=== PATIENT | male | born 1940 | race Caucasian/White ===

== ENCOUNTER 2016-10-30 10:08 | Outpatient (CLI) | payer OTHER ==
[2016-07-22 14:29] VITALS: BP 140/49
== END 2016-10-30 10:10 ==
LOC: LAB 10:08
PROVIDERS: ATTEND Family Medicine
DX: E11.9 Type 2 diabetes mellitus without complications (principal); E03.9 Hypothyroidism, unspecified
CPT/HCPCS: 36415; 83036; 84443

== ENCOUNTER 2017-02-05 09:37 | Outpatient (CLI) | payer OTHER ==
[2016-07-22 14:29] VITALS: BP 140/49
[2017-02-05 09:59] LABS: BASOPHILS % 0.8 (0.0-1.5); EOSINOPHILS % 2.7 % (0.0-6.8); MEAN CORPUSCULAR HEMOGLOBIN 30.6 pg (28.0-34.0); MEAN CORPUSCULAR VOLUME 96.5 fl (80.0-100.0); MONOCYTES % 5.3 % (0.0-11.0); NEUTROPHILS # 6.9 # k/uL (1.4-7.7)
[2017-02-05 10:22] LABS: eGFR (African) > 60; eGFR (Non-African) > 60
[2017-02-05 17:21] LABS: IRON SERUM 77 ug/dL (59-158)
== END 2017-02-05 09:40 ==
LOC: LAB 09:37
PROVIDERS: ATTEND Family Medicine
DX: E11.9 Type 2 diabetes mellitus without complications (principal); G25.81 Restless legs syndrome
CPT/HCPCS: 36415; 80053; 82728; 83036; 83540; 85025

== ENCOUNTER 2017-04-01 12:57 | Emergency (ER) | payer OTHER ==
--- NOTE | 2017-04-01 13:31 | ED Physician Documentation ---
Abdominal Pain - HISTORIAN Historian: patient - HPI Stated Complaint: a shift in abd hernea from low right to mid abd right Chief Complaint: Abdominal Pain Onset: days ago (2 days ago) Context: denies: out of country travel Severity: mild Quality: cramping Associated Symptoms: none, diarrhea (last time Friday, no BM since). denies: fever, chills, nausea, vomiting, coffee ground emesis, bloody emesis, bloody stools, grossly bloody stools Further Comments: yes (Patient has had partial colectomy, since that time had a hernia, one week aog felt like something moved and has noticed since that time that the hernia does not seem to be as big and noticed to have some swelling above the area and to the mid area. Has had some diarrhea two nights ago, no BM since then. No blood in stools noted. No nausea or vomitng noted.No fever or chills noted.) - ROS CONST: no problems GI/: denies: black stools, bloody urine, bloody stools - SOCIAL HX Smoking History: non-smoker Alcohol Use: none Drug Use: none - FAMILY HX Family History: no significant history - PAST HX Past History: GERD Ischemic Bowel Risk Factors: other (CAD) Other History: other (copd, CAD, GERDs, hypothyroidism, Major depressive disorder, BALAJI, RA, DM type 2, history of ulcerative colitis) Surgeries/Procedures: appendectomy, other (partial coloectomy, carotid endrterectomy, Fem-pop bypass, lumbar laminectomy) Home Medications: Ambulatory Orders Medication Instructions Recorded Ferrous Sulfate [Feosol] 325 mg PO BID #60 tablet 01/10/16 PARoxetine HCL [Paxil] 20 mg PO QD 07/22/16 Pioglitazone HCl [Pioglitazone HCl] 45 mg PO QDAY 07/22/16 Tamsulosin HCl [Tamsulosin HCl] 0.04 mg PO DAILY 07/22/16 Aspirin [Adult Low Dose Aspirin EC] 81 mg PO DAILY 04/01/17 Ipratropium/Albuterol Sulfate 3 ml NEB QID 04/01/17 [Duoneb] [place]-3 Fatty Acids/Fish Oil [Fish 1 cap PO DAILY 04/01/[address] 1,000 mg Softgel] Allergies/Adverse Reactions: Allergies Allergy/AdvReac Type Severity Reaction Status Date / Time Penicillins Allergy Verified 04/01/17 13:15 - VITAL SIGNS Vital Signs: Vital Signs Temp Pulse Resp BP Pulse Ox 99.0 F 77 20 167/71 95 04/01/17 12:57 04/01/17 12:57 04/01/17 12:57 04/01/17 12:57 04/01/17 12:57 - REVIEWED ASSESSMENTS Nursing Assessment Reviewed: Yes Vitals Reviewed: Yes ED Results Lab/Radiology - Radiology Radiology Impressions: Patient Study Name: CONNIE HERNANDEZ Date: Apr 01, 2017 1:53:23 PM CDT Modality Type: CR Gender: M Description: CHEST,ABDOMEN : 38 Institution: [facility] Physician: ISIDORO TORRES - IRAJ Obstructive series with chest x-ray Clinical history: Lower abdominal pain and distension. Findings: Examination of the chest in single upright view demonstrates lungs to be free of coalescent infiltrate. The cardiac silhouette is prominent and the aorta is atherosclerotic. Degenerative changes are seen in the thoracic vertebrae. Examination of the abdomen in supine and upright views demonstrates normal appearing bowel gas pattern. There is no obstruction or free air. Degenerative changes are seen in the lumbar vertebrae and hips. There are no unusual intra-abdominal calcifications. Impression: 1. Aortic atherosclerosis and left ventricular prominence. 2. Thoracolumbar spondylosis. 3. No obstruction or free air. - Orders Orders: ED Orders Category Date Time Status ABD SERIES [ABD SERIES PA CHEST] [RAD] Stat Exams 04/01/17 Completed Abdominal Pain Physical Exam - Physical Exam General Appearance: no acute distress, alert NECK: normal inspection, supple RESPIRATORY: no resp distress, chest non-tender, breath sounds normal. No: wheezes, rales, rhonchi CVS: reg rate & rhythm, heart sounds normal, equal pulses, no murmur ABDOMEN: soft, no organomegaly, normal bowel sounds, no abdominal bruit, no distension, non-tender. No: rebound, distended, guarding BACK: normal inspection, no CVA tenderness SKIN: warm/dry, normal color EXTREMITIES: non-tender NEURO: oriented X3, CN's nml as tested, cognition normal Vital Signs: Vital Signs Temp Pulse Resp BP Pulse Ox 99.0 F 77 20 167/71 95 04/01/17 12:57 04/01/17 12:57 04/01/17 12:57 04/01/17 12:57 04/01/17 12:57 Discharge Clincal Impression: Abdominal discomfort Referrals: Dora Mancera MD [Primary Care Provider] - 2 Days Additional Instructions: Try to increase the fiber in your diet. Watch for any nausea or vomiting. Watch for blood in your stools. If you continue to have problems to follow-up with your primary care provider to return to the ED. Home Medications: Ambulatory Orders Ferrous Sulfate [Feosol] 325 mg PO BID #60 tablet 01/10/16 PARoxetine HCL [Paxil] 20 mg PO QD 07/22/16 Pioglitazone HCl [Pioglitazone HCl] 45 mg PO QDAY 07/22/16 Tamsulosin HCl [Tamsulosin HCl] 0.04 mg PO DAILY 07/22/16 Aspirin [Adult Low Dose Aspirin EC] 81 mg PO DAILY 04/01/17 Ipratropium/Albuterol Sulfate [Duoneb] 3 ml NEB QID 04/01/17 [place]-3 Fatty Acids/Fish Oil [Fish Oil Dr 1,000 mg Softgel] 1 cap PO DAILY 04/01 Condition: Stable Disposition: 01 HOME, SELF-CARE Decision to Admit: NO Date of Decison to Admit: 04/01/17 Decision Time: 15:01
--- NOTE | 2017-04-01 14:36 | Diagnostic Imaging Report ---
ISIDORO TORRES [facility] [address] [facility] [id number] Report Submission Date: Apr 01, 2017 2:31:50 PM CDT Patient Study Name: CONNIE HERNANDEZ Date: Apr 01, 2017 1:53:23 PM CDT Modality Type: CR Gender: M Description: CHEST,ABDOMEN : 38 Institution: [facility] Physician: ISIDORO TORRES Obstructive series with chest x-ray Clinical history: Lower abdominal pain and distension. Findings: Examination of the chest in single upright view demonstrates lungs to be free of coalescent infiltrate. The cardiac silhouette is prominent and the aorta is atherosclerotic. Degenerative changes are seen in the thoracic vertebrae. Examination of the abdomen in supine and upright views demonstrates normal appearing bowel gas pattern. There is no obstruction or free air. Degenerative changes are seen in the lumbar vertebrae and hips. There are no unusual intra-abdominal calcifications. Impression: 1. Aortic atherosclerosis and left ventricular prominence. 2. Thoracolumbar spondylosis. 3. No obstruction or free air. Electronically signed on Apr 01, 2017 2:31:50 PM CDT by: Amor CUNNINGHAM
[2017-04-01 15:02] VITALS: BP 163/62
== END 2017-04-01 15:00 | disposition home or self-care (01) ==
LOC: ED 12:57
DX: R10.9 Unspecified abdominal pain (principal)
CPT/HCPCS: 74022; 99283

== ENCOUNTER 2017-05-26 08:56 | Outpatient (CLI) | payer OTHER ==
[2017-05-26 09:51] LABS: eGFR (African) 54; eGFR (Non-African) 45
== END 2017-05-26 08:57 ==
LOC: LAB 08:56
PROVIDERS: ATTEND Family Medicine
DX: E78.2 Mixed hyperlipidemia (principal); E11.9 Type 2 diabetes mellitus without complications; E03.9 Hypothyroidism, unspecified
CPT/HCPCS: 36415; 80053; 80061; 83036; 84443

== ENCOUNTER 2017-07-14 15:39 | Outpatient (CLI) | payer OTHER ==
[2017-07-14 15:57] LABS: BASOPHILS % 0.5 (0.0-1.5); EOSINOPHILS % 2.4 % (0.0-6.8); MEAN CORPUSCULAR HEMOGLOBIN 28.9 pg (28.0-34.0); MEAN CORPUSCULAR VOLUME 91.8 fl (80.0-100.0); MONOCYTES % 5.4 % (0.0-11.0); NEUTROPHILS # 7.5 # k/uL (1.4-7.7)
[2017-07-14 16:20] LABS: eGFR (African) 44; eGFR (Non-African) 37
== END 2017-07-14 16:45 ==
LOC: LAB 15:39
PROVIDERS: ATTEND Internal Medicine Gastroenterology
DX: K74.60 Unspecified cirrhosis of liver (principal); R14.0 Abdominal distension (gaseous); R53.83 Other fatigue; R19.7 Diarrhea, unspecified
CPT/HCPCS: 36415; 80053; 85025

== ENCOUNTER 2017-08-12 09:33 | Outpatient (CLI) | payer OTHER ==
[2017-08-12 10:35] LABS: eGFR (African) 54; eGFR (Non-African) 45
== END 2017-08-12 10:37 ==
LOC: LAB 09:33
PROVIDERS: ATTEND Internal Medicine Gastroenterology
DX: E11.9 Type 2 diabetes mellitus without complications (principal); K74.69 Other cirrhosis of liver
CPT/HCPCS: 36415; 80053; 82140; 83036

== ENCOUNTER 2017-09-12 08:20 | Emergency (ER) | payer OTHER ==
[2017-09-12] MEDS ORDERED: FUROSEMIDE 40 MG/4 ML VIAL ONE (08:38)
[2017-09-12] MEDS ORDERED: BUDESONIDE 0.5MG/2ML AMPUL.NEB NEB ONE (08:38)
[2017-09-12] MEDS ORDERED: methylPREDNISolone SOD SUCC 125 MG/2 ML VIAL IVP ONE (08:50)
[2017-09-12] MEDS ORDERED: FUROSEMIDE 40 MG/4 ML VIAL IVP ONE ×2 (08:50→10:00)
[2017-09-12] MEDS ORDERED: IPRATROPIUM/ALBUTEROL SULFATE 3 ML AMPUL.NEB NEB ONE (08:50)
[2017-09-12] MEDS ORDERED: BUDESONIDE 0.5MG/2ML AMPUL.NEB NEB SCH (09:00)
[2017-09-12] MEDS ORDERED: ETOMIDATE 20 MG/10 ML IV ONE (09:22)
[2017-09-12 09:33] LABS: MEAN CORPUSCULAR HEMOGLOBIN 29.9 pg (28.0-34.0); MEAN CORPUSCULAR VOLUME 96.3 fl (80.0-100.0)
[2017-09-12 09:50] LABS: APPEARANCE,URINE Clear (CLEAR); COLOR,URINE Yellow (YELLOW); OCCULT BLOOD,URINE 2+ (NEGATIVE); PH URINE 5.5 (5.0 - 8.0); UROBILINOGEN URINE 0.2 Eu (0.2-1.0)
--- NOTE | 2017-09-12 10:06 | ED Physician Documentation ---
Dyspnea - HISTORIAN Historian: patient - HPI Stated Complaint: Shortness of Breath Chief Complaint: Dyspnea Additional Information: Sick since Friday. Increased problems breathing. Onset: days ago (2) Duration: continues in ED Initiating Event: other (infectious) Severity: severe Exacerbated By: laying flat Associated Symptoms: chills, productive cough Further Comments: no - ROS CONST: weakness EYES/ENT: none GI/: problems urinating (BPH) NEURO/PSYCH: denies: headache MS/SKIN/LYMPH: none - PAST HX Lung Disease: COPD Cardiac Disease: CHF Surgeries/Procedures: other (colon [id number], lumbar laminectomy, fem-pop bypass, carotid endarterectomy) Other History: diabetes Type 2, other (ulcerative colitis, anemia, etoh abuse with cirrhosis) Immunizations: referred to PCP Allergies/Adverse Reactions: Allergies Allergy/AdvReac Type Severity Reaction Status Date / Time Penicillins Allergy Verified 09/12/17 08:34 Home Medications: Ambulatory Orders Medication Instructions Recorded Ferrous Sulfate [Feosol] 325 mg PO BID #60 tablet 01/10/16 PARoxetine HCL [Paxil] 20 mg PO QD 07/22/16 Pioglitazone HCl [Pioglitazone HCl] 45 mg PO QDAY 07/22/16 Tamsulosin HCl [Tamsulosin HCl] 0.04 mg PO DAILY 07/22/16 Aspirin [Adult Low Dose Aspirin EC] 81 mg PO DAILY 04/01/17 Ipratropium/Albuterol Sulfate 3 ml NEB QID 04/01/17 [Duoneb] [place]-3 Fatty Acids/Fish Oil [Fish 1 cap PO DAILY 04/01/[address] 1,000 mg Softgel] Colesevelam HCl [Welchol] 1,250 mg PO QDAY 09/12/17 Lisinopril [Zestril] 10 mg PO QDAY 09/12/17 Ropinirole HCl [Requip] 0.25 mg PO QDAY 09/12/17 - SOCIAL HX Smoking History: non-smoker, quit greater than 1 year Alcohol Use: heavy Drug Use: none - FAMILY HX Family History: no significant history - VITAL SIGNS Vital Signs: Vital Signs Temp Pulse Resp BP Pulse Ox 98.7 F 110 H 30 H 98/50 77 L 09/12/17 08:20 09/12/17 08:20 09/12/17 08:20 09/12/17 08:20 09/12/17 08:20 - REVIEWED ASSESSMENTS Nursing Assessment Reviewed: Yes Vitals Reviewed: Yes Procedures - Additional Procedures Additional Procedures: arterial blood draw Progress: Bipap settings: IPAP 16 EPAP 10 rate 16, FIO2 60% Progress - Results/Orders Results/Orders: cbc, cmp, pt/ptt/inr, ua, bnp, trop, abg, blood cultures x 2, ekg, cxr ordered - Progress Progress: Pt. given 40 mg Lasix ivp x 2, 1 liter bolus 0.9 NS, O2 15 L nonrebreather changed to BIPAP (see procedures for settings), Rocephin 1 gram IVPB, Pulmicort 0.5 mg via nebulizer and Duoneb via nebulizer in ER Critical Care Note - Critical Care Note Total Time (mins): 60 ED Results Lab/Radiology - Lab Results Lab Results: Lab Results 09/12/17 09/12/17 09/12/17 09:00 09:00 09:00 WBC Pending RBC 3.83 M/ul L M/ul (3.90-5.20) Hgb 11.5 g/dL L g/dL (12.0-18.0) Hct 36.9 % L % (37.0-53.0) MCV 96.3 fl fl (80.0-100.0) MCH 29.9 pg pg (28.0-34.0) MCHC 31.1 g/dL g/dL (30.0-36.0) RDW 14.2 % % (11.3-14.3) Plt Count 178 K/mm3 K/mm3 (130-400) PT 19.1 Seconds H Seconds (9.4-11.6) INR 1.81 H (0.9-1.2) APTT 39.4 Seconds H Seconds (24.5-32.8) Troponin I 0.07 ng/mL H ng/mL (0.03-0.06) NT-Pro-B Natriuret Pep 4085.7 pg/mL H pg/mL (15.0-450.0) - Radiology Radiology Impressions: cxr shows bilateral pulmonary infiltrates - Orders Orders: ED Orders Category Date Time Status Alaniz [Urinary catheterization] 1T Care 09/12/17 09:[address] IV Lock 1T Care 09/12/17 10:00 Ordered CHEST 1 VIEW [RAD] Routine Exams 09/12/17 Ordered ARTERIAL BLOOD GAS Stat Lab 09/12/17 08:53 Ordered BLOOD CULTURE Routine Lab 09/12/17 09:00 Ordered CBC/PLATELET/DIFF Routine Lab 09/12/17 09:00 Results CMP Routine Lab 09/12/17 09:00 Received NT-proBNP Routine Lab 09/12/17 09:00 Completed PT-INR Routine Lab 09/12/17 09:00 Completed PTT Routine Lab 09/12/17 09:00 Completed TROPONIN I (cTnI) Routine Lab 09/12/17 09:00 Completed URINALYSIS Routine Lab 09/12/17 09:30 Received Budesonide [Pulmicort] Med 09/12/17 08:38 Discontinued 0.5 mg NEB .STK-MED ONE Budesonide [Pulmicort] Med 09/12/17 09:00 Ordered 0.5 mg NEB BID Etomidate [Amidate] Med 09/12/17 09:22 Discontinued 20 mg IV .STK-MED ONE Furosemide [Lasix] Med 09/12/17 08:38 Discontinued 40 mg .ROUTE .STK-MED ONE Furosemide [Lasix] Med 09/12/17 08:50 Discontinued 40 mg IVP NOW ONE Furosemide [Lasix] Med 09/12/17 10:00 Once 40 mg IVP NOW ONE Ipratropium/Albuterol Sulfate [Duoneb] Med 09/12/17 08:50 Discontinued 3 ml NEB NOW ONE methylPREDNISolone SOD SUCC [Solu-MEDROL] Med 09/12/17 08:50 Discontinued 125 mg IVP NOW ONE Oxygen Daily Oxygen 09/12/17 09:00 Ordered EKG WITH COMPARISON Routine Ther 09/12/17 Ordered Dyspnea Physical Exam - EXAM General Appearance: severe distress EENT: eye inspection normal, ENT inspection normal, pharynx normal, PEDRO, no nystagmus, TM's nml, dry mucous membranes Neck: nml inspection Respiratory: respiratory distress, retractions, accessory muscle use, decreased air movement, rales (coarse rales all lumg [place]) CVS: reg. rate & rhythm Abdomen: non-tender, no organomegaly, no distention Skin: warm, dry Extremities: normal range of motion, no evidence of injury, no edema Neuro/Psych: oriented x3, CN's nml as tested, motor nml, sensation nml Discharge Clincal Impression: Pneumonia Qualifiers: Pneumonia type: due to unspecified organism Laterality: bilateral Lung location : lower lobe of lung Qualified Code(s): J18.9 - Pneumonia, unspecified organism Respiratory failure Qualifiers: Chronicity: acute Respiratory failure complication: hypoxia and hypercapnia Qualified Code(s): J96.01 - Acute respiratory failure with hypoxia; J96.02 - Acute respiratory failure with hypercapnia; J96.02 - Acute respiratory failure with hypercapnia; J96.02 - Acute respiratory failure with hypercapnia Referrals: Dora Mancera MD [Primary Care Provider] - 2 Days Comments: Case discussed with Dr. Bills at [facility] who accepts transfer. Pt. stable on BIPAP at time of air ambulance transfer to [facility]. Condition: Stable Disposition: T-[facility] Decision to Admit: NO Decision Time: 10:05
[2017-09-12 10:14] LABS: AMORPHOUS SEDIMENT,UR FEW (NEGATIVE)
[2017-09-12] MEDS ORDERED: 0.9 % SODIUM CHLORIDE 100 ML IV ONE (10:17)
[2017-09-12] MEDS ORDERED: cefTRIAXone SODIUM 1 GM VIAL ONE (10:17)
[2017-09-12] MEDS ORDERED: cefTRIAXone SODIUM ADVANTAGE 1 GM in NORMAL SALINE ADD-VANTAGE 50 ML IV ONE (10:27)
[2017-09-12] MEDS ORDERED: 0.9 % SODIUM CHLORIDE 1,000 ML IV SCH ×2 (10:30)
--- NOTE | 2017-09-12 10:48 | Diagnostic Imaging Report ---
GIGI MURRAY [facility] [address] [facility].[address] [address] Report Submission Date: Sep 12, 2017 9:21:36 AM [employer] Patient Study Name: CONNIE HERNANDEZ Date: Sep 12, 2017 9:06:46 AM [employer] Modality Type: CR Gender: M Description: CHEST : 38 Institution: [facility] Physician: GIGI MURRAY Examination: Portable chest History: Chest discomfort Comparison exam: 01 April 2017 Findings: Single view of the chest demonstrates a prominent cardiac and mediastinal silhouette. Left greater right parenchymal hazy infiltrates. Obscuration of the costophrenic margins. Osseous structures are appropriate for age. Impression: Diffuse/significant, left greater than right, pulmonary infiltrates. Electronically signed on Sep 12, 2017 9:21:36 AM [employer] SALESPERSON by: Naveed CUNNINGHAM
[2017-09-12 10:53] VITALS: BP 122/49
[2017-09-12] MEDS ORDERED: SUCCINYLCHOLINE CHLORIDE 20 MG/ML 10ML VIAL ONE (11:11)
[2017-09-12 11:51] LABS: HYPOCHROMASIA 1+ (NEGATIVE); MONOCYTES % 1 % (0-11); SEGMENTED NEUTROPHILS % 72 % (39-79); TOXIC GRANULATION PRESENT; TOXIC VACUOLATION PRESENT
[2017-09-15 07:54] LABS: ABG BASE EXCESS -7.2 (-2 - +2); ABG PH 7.17 (7.35-7.45)
== END 2017-09-12 10:24 | disposition short-term general hospital (02) ==
LOC: ED 08:20
DX: J18.9 Pneumonia, unspecified organism (principal); J96.01 Acute respiratory failure with hypoxia; J96.02 Acute respiratory failure with hypercapnia
CPT/HCPCS: 36415; 36600; 51702; 71010; 80053; 81002; 82803; 83880; 84484; 85025; 85610; 85730; 87040; 87400; 94640; 96365; 96375; 96376; 99284; 99291; J0696; J1940; J2930; J7626; J7030; S1016